=== PATIENT | female | born 2000 | race American Indian/Alaskan Native ===

== ENCOUNTER 2020-03-21 12:06 | Emergency (ER) | payer OTHER, BC ==
[2020-03-21 12:18] VITALS: BP 122/82
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
== END 2020-03-21 15:06 | disposition home or self-care (01) ==
LOC: ED 12:06
DX: S93.402A Sprain of unspecified ligament of left ankle, initial encounter (principal); S39.012A Strain of muscle, fascia and tendon of lower back, initial encounter; S16.1XXA Strain of muscle, fascia and tendon at neck level, initial encounter; Z79.1 Long term (current) use of non-steroidal anti-inflammatories (NSAID); Z79.899 Other long term (current) drug therapy; Z91.013 Allergy to seafood; V49.49XA Driver injured in collision with other motor vehicles in traffic accident, initial encounter; Y93.89 Activity, other specified; Y92.410 Unspecified street and highway as the place of occurrence of the external cause; Y99.8 Other external cause status